=== PATIENT | female | born 1950 | race Caucasian/White ===

== ENCOUNTER 2023-11-15 12:54 | Inpatient (IN) | payer MEDICARE, OTHER ==
[~2023-11-15] VITALS: Ht 160 cm; Wt 82.1 kg
[2023-11-15 12:59] VITALS: BP_SYST 110; PULSE 70; RESP 18; TEMP 98.3; O2SAT 98
[2023-11-15] MEDS ORDERED: HUM100IN (13:25)
[2023-11-15] MEDS ORDERED: ISOS40TA19 (13:25)
[2023-11-15] MEDS ORDERED: [UNRECOGNIZED DRUG - CODE] (13:25)
[2023-11-15] MEDS ORDERED: INSU100V (13:25)
[2023-11-15] MEDS ORDERED: ATOR40TA68 (13:25)
[2023-11-15] MEDS ORDERED: METO25TA3 (13:25)
[2023-11-15] MEDS ORDERED: CLOP75TA2 (13:25)
[2023-11-15] MEDS ORDERED: ESCI5TAB (13:25)
[2023-11-15] MEDS ORDERED: FURO-150 (13:25)
[2023-11-15 13:54] LABS: BASOPHILS % (AUTO) 0.7 % (0.0-2.0); EOSINOPHILS # (AUTO) 0.2 K/uL (0.0-0.4); EOSINOPHILS % (AUTO) 2.8 % (0.0-4.0); HEMATOCRIT 28.5 % (36-48); HEMOGLOBIN 9.3 g/dL (12.0-16.0); LYMPHOCYTES # (AUTO) 1.2 K/uL (1.0-5.5); LYMPHOCYTES % (AUTO) 22.2 % (20.5-51.5); MEAN CORPUSCULAR HEMOGLOBIN 30 pg (27-31); MEAN CORPUSCULAR HGB CONC 33 % (32-36); MEAN CORPUSCULAR VOLUME 90 fL (79.0-98.0); MONOCYTES # (AUTO) 0.4 K/uL (0.0-1.0); NEUTROPHILS # (AUTO) 3.7 K/uL (1.8-7.7); NEUTROPHILS % (AUTO) 66.3 % (40.0-70.0); PLATELET COUNT (AUTO) 201 K/uL (130-430); RED BLOOD CELL COUNT(AUTO) 3.15 MIL/uL (4.2-6.2); RED CELL DISTRIBUTION WIDTH 15.6 % (9.0-15.0); WHITE BLOOD COUNT (AUTO) 5.6 K/uL (4.8-10.8)
[2023-11-15 14:14] LABS: PROTHROMBIN TIME 10.3 SECS (9.5-12.5)
[2023-11-15 14:25] LABS: ALANINE AMINOTRANSFERASE 14 U/L (12-78); ALBUMIN 2.8 g/dL (3.4-4.8); ANION GAP 9 (5-15); ASPARTATE AMINOTRANSFERASE 13 U/L (10-37); BILIRUBIN,DIRECT 0.1 mg/dL (0.0-0.3); CALCIUM 8.5 mg/dL (8.4-11.0); CARBON DIOXIDE 27 mmol/L (23-29); CHLORIDE 107 mmol/L (98-107); CREATINE KINASE, TOTAL 40 U/L (26-192); CREATININE 3.08 mg/dL (0.55-1.30); GLUCOSE 123 mg/dL (74-106); POTASSIUM 3.9 mmol/L (3.5-5.1); SODIUM SERUM 143 mmol/L (136-145); TOTAL BILIRUBIN 0.3 mg/dL (0.0-1.0); TOTAL PROTEIN, SERUM 6.6 g/dL (6.4-8.3); UREA NITROGEN, BLOOD 69 mg/dL (8-21)
[2023-11-15] MEDS: ASPIRIN 81 MG TABLET(ECOTRIN) PO ONE (15:17)
[2023-11-15] MEDS ORDERED: ONDANSETRON HCL 4 MG/2 ML VIAL IVP PRN (18:30)
[2023-11-15] MEDS ORDERED: HYDROmorphone 1 MG/ML INJ. CARTRIDGE IVP PRN (18:30)
[2023-11-15] MEDS: NACL 0.9% 1,000 ML IV SCH (18:30)
[2023-11-15] MEDS ORDERED: ACETAMINOPHEN 325 MG TABLET PO PRN ×2 (18:30→19:30)
[2023-11-15] MEDS ORDERED: MORPHINE 2 MG/ML INJ. SYRINGE IVP PRN (18:30)
[2023-11-15] MEDS ORDERED: IOHEXOL 350 mgI/mL, 150 ML INFUS..BTL IV ONE (19:10)
[2023-11-15] MEDS: HEPARIN SODIUM,PORCINE 5,000 UNITS/ML VIAL SUBCUT SCH (22:22)
[2023-11-16 04:45] LABS: BASOPHILS % (AUTO) 0.5 % (0.0-2.0); EOSINOPHILS # (AUTO) 0.2 K/uL (0.0-0.4); EOSINOPHILS % (AUTO) 3.2 % (0.0-4.0); HEMATOCRIT 27.9 % (36-48); HEMOGLOBIN 9.3 g/dL (12.0-16.0); LYMPHOCYTES # (AUTO) 1.7 K/uL (1.0-5.5); LYMPHOCYTES % (AUTO) 28.1 % (20.5-51.5); MEAN CORPUSCULAR HEMOGLOBIN 30 pg (27-31); MEAN CORPUSCULAR HGB CONC 33 % (32-36); MEAN CORPUSCULAR VOLUME 90 fL (79.0-98.0); MONOCYTES # (AUTO) 0.5 K/uL (0.0-1.0); MONOCYTES % (AUTO) 7.8 % (1.7-9.3); NEUTROPHILS # (AUTO) 3.7 K/uL (1.8-7.7); NEUTROPHILS % (AUTO) 60.4 % (40.0-70.0); PLATELET COUNT (AUTO) 178 K/uL (130-430); RED CELL DISTRIBUTION WIDTH 15.6 % (9.0-15.0); WHITE BLOOD COUNT (AUTO) 6.2 K/uL (4.8-10.8)
[2023-11-16 05:17] LABS: ALANINE AMINOTRANSFERASE 13 U/L (12-78); ALBUMIN 2.7 g/dL (3.4-4.8); ANION GAP 8 (5-15); ASPARTATE AMINOTRANSFERASE 11 U/L (10-37); CALCIUM 8.3 mg/dL (8.4-11.0); CARBON DIOXIDE 27 mmol/L (23-29); CHLORIDE 110 mmol/L (98-107); CREATININE 2.73 mg/dL (0.55-1.30); GLUCOSE 79 mg/dL (74-106); PHOSPHORUS 3.5 mg/dL (2.7-4.5); POTASSIUM 3.6 mmol/L (3.5-5.1); SODIUM SERUM 145 mmol/L (136-145); TOTAL BILIRUBIN 0.4 mg/dL (0.0-1.0); TOTAL PROTEIN, SERUM 6.5 g/dL (6.4-8.3); UREA NITROGEN, BLOOD 58 mg/dL (8-21)
[2023-11-16] MEDS: ASPIRIN 81 MG TAB.CHEW PO SCH (09:00)
[2023-11-16] MEDS: LORazepam 2 MG/ML VIAL IVP PRN (09:35)
[2023-11-16] MEDS ORDERED: INSULIN Lispro 100 UNITS/ML, 3 ML VIAL (humaLOG) SQ SCH (10:15)
[2023-11-16] MEDS ORDERED: hydrALAZINE HCL 20 MG/ML VIAL IVP PRN (11:30)
[2023-11-16] MEDS: hydrALAZINE HCL 20 MG/ML VIAL IVP PRN (11:55)
[2023-11-16 12:27] VITALS: BP_SYST 174; PULSE 65; RESP 17; TEMP 98.2; O2SAT 96
[2023-11-16] MEDS: amLODIPine BESYLATE 10 MG TABLET PO ONE (15:48)
[2023-11-16 16:10] VITALS: BP_SYST 184; PULSE 70; RESP 18; TEMP 97.8; O2SAT 95
[2023-11-16] MEDS: EPOETIN ALFA 4,000 UNITS/ML VIAL SUBCUT ONE (16:49)
[2023-11-16] MEDS: INSULIN LISPRO SLIDING SCALE 100 UNITS/ML, 3 ML VIAL (humaLOG) SUBCUT PRN (17:00)
[2023-11-16 19:14] VITALS: BP_SYST 155; PULSE 75; RESP 18; TEMP 98.1; O2SAT 96
[2023-11-17] MEDS ORDERED: CITALOPRAM HYDROBROMIDE 20 MG TABLET PO SCH (09:00)
[2023-11-17] MEDS ORDERED: ATORVASTATIN 20 MG TABLET PO SCH (09:00)
[2023-11-17] MEDS ORDERED: CLOPIDOGREL BISULFATE 75 MG TABLET PO SCH (09:00)
[2023-11-17] MEDS ORDERED: FUROSEMIDE 20 MG TABLET PO SCH (09:00)
[2023-11-17] MEDS ORDERED: PANTOPRAZOLE SODIUM 40 MG TAB PO SCH (09:00)
[2023-11-17] MEDS ORDERED: amLODIPine BESYLATE 10 MG TABLET PO SCH (09:00)
== END 2023-11-16 18:20 | disposition short-term general hospital (02) | DRG 69 ==
LOC: SED 12:54 → STU 19:15
PROVIDERS: ADMIT Student in an Organized Health Care Education/Training Program; ATTEND Student in an Organized Health Care Education/Training Program
DX: G45.9 Transient cerebral ischemic attack, unspecified (principal); N18.4 Chronic kidney disease, stage 4 (severe); I12.9 Hypertensive chronic kidney disease with stage 1 through stage 4 chronic kidney disease, or unspecified chronic kidney disease; E11.22 Type 2 diabetes mellitus with diabetic chronic kidney disease; E78.5 Hyperlipidemia, unspecified; I25.10 Atherosclerotic heart disease of native coronary artery without angina pectoris; Z79.899 Other long term (current) drug therapy
CPT/HCPCS: 36415; 70450-TC; 71045; 80048; 80053; 80076; 82550; 82948; 83605; 83735; 84100; 84484; 85025; 85610; 85730; 92610-GN; 93005; 93306; 99285; G0378; J0360; J1644; J2060; Q9967